=== PATIENT | male | born 1985 | race Caucasian/White ===

== ENCOUNTER 2017-05-07 06:27 | Emergency (ER) | payer OTHER ==
--- NOTE | 2017-05-07 07:08 | ER NURSING DOCUMENTATION ---
Nurse's Notes [facility] Name:Prudence Logan Age:31 yrs Sex:Male :1985 Arrival Date:05/07/2017 Time:06:27 Bed4 Private MD:PhysicianDelia Diagnosis:Medication Refill;Anxiety Reaction Presentation: 05/07 06:37 Presenting complaint: Patient states: pt states he hasnt slept last night and feels bw2 like there is something in his chest. pt states he has very minimal pain. Transition of care: patient was not received from another setting of care. 06:37 Method Of Arrival: Walk In bw2 06:37 Acuity: DOMINIQUE 3 bw2 07:06 AIR CAT ACTIVATION no other not medically needed. Asprin Given n/a. bw2 Triage Assessment: 06:39 General: Appears in no apparent distress, Behavior is anxious. Pain: Complains of pain bw2 in mid chest. Historical: - Allergies: No known drug Allergies; - Tetanus: < 10 years. - Ebola Screening: : Patient negative for fever greater than or equal to 101.5 degrees Fahrenheit, and additional compatible Ebola Virus Disease symptoms. Patient denies exposure to infectious person. Patient denies travel to an Ebola-affected area in the 21 days before illness onset. No symptoms or risks identified at this time. . - Immunization history: Flu Vaccine unknown. - Social history: Smoking status: Patient states was never smoker of tobacco. Screenin:55 Infectious Disease Risk None. Abuse screen: Denies threats or abuse. Nutritional bw2 screening: No deficits noted. Assessment: 06:55 See Triage Assessment done by same RN. Pain: Pain does not radiate. Pain began bw2 gradually, 1 day ago. Cardiovascular: Reports None Rhythm is regular. Vital Signs: 06:39 BP 157 / 91; Pulse 97; Resp 18 S; Temp 98(O); Pulse Ox 97% ; Weight 68.04 kg; Pain 2/10;bw2 ED Course: 06:29 Patient arrived in ED. em2 06:29 Physician, Delia is Private Physician. em2 06:37 Olesya Coronado is Primary Nurse. bw2 06:38 Triage completed. bw2 06:43 EKG done. (by ED staff). em1 06:50 Jose Maxwell MD is Attending Physician. jm 06:55 Valuables Remains with patient. Pulse Ox - RN Monitoring Only NIBP On - RN Monitoring bw2 Only. 07:40 EKG attached lp Administered Medications: No medications were administered Outcome: 07:02 Discharge ordered by . rasta 07:07 Discharged to home ambulatory. bw2 07:07 Condition: good 07:07 Discharge Assessment: Patient awake, alert and oriented x 3. No cognitive and/or functional deficits noted. Patient verbalized understanding of disposition instructions. 07:07 Discharge instructions given to patient, Instructed on discharge instructions, follow up and referral plans. Demonstrated understanding of medications, Prescriptions given X 2. 07:07 Patient left the ED. bw2 Signatures: Christina Krishnamurthy RN RN Jose Isaac MD MD jm [employer], [employer] em1 Tyrel-reg, Lucie-reg em2 Olesya Coronado bw2
--- NOTE | 2017-05-07 07:08 | ER PHYSICIAN DOCUMENTATION ---
Physician Documentation [facility] Name:Prudence Logan Age:31 yrs Sex:Male :1985 Arrival Date:05/07/2017 Time:06:27 Bed4 Private MD:Physician, No ED Jose Guerrero Disposition: 05/07/17 07:02 Discharged to Home/Self Care. Impression: Medication Refill, Anxiety Reaction. - Condition is Good. - Discharge Instructions: Anxiety - ANXIETY REACTION. - Prescriptions for alprazolam 0.5 mg Oral tablet - take 1 tablet by ORAL route 3 times per day; 40 tablet. sertraline 50 mg Oral tablet - take 1 tablet by ORAL route once daily; 30 tablet. - Medical Reconciliation form form. - Follow up: Private Physician; When: As needed; Reason: Continuance of care. - Problem is new. - Symptoms have improved. HPI: 05/07 07:46 This 31 yrs old Unknown Male presents to ER via Walk In with complaints of Chest jm Tightness. 07:46 The patient presents to the emergency department requesting refill(s) for: Xanax, jm Zoloft. The patient chronically suffers from anxiety. The patient has not experienced similar symptoms in the past. Pt here from [place] of town and forgot his xanax and zoloft and feels very anxious. He mentioned to triage that he has chest tightness, but he never mentioned this to me, just that he would like his medications. . Historical: - Allergies: No known drug Allergies; - Tetanus: < 10 years. - Ebola Screening: : Patient negative for fever greater than or equal to 101.5 degrees Fahrenheit, and additional compatible Ebola Virus Disease symptoms. Patient denies exposure to infectious person. Patient denies travel to an Ebola-affected area in the 21 days before illness onset. No symptoms or risks identified at this time. . - Immunization history: Flu Vaccine unknown. - Social history: Smoking status: Patient states was never smoker of tobacco. ROS: 07:46 Constitutional: Negative for fatigue, fever. jm 07:46 Cardiovascular: Negative for chest pain. 07:46 Respiratory: Negative for shortness of breath. 07:46 Psych: Positive for anxiety, insomnia. 07:46 All other systems are negative. Exam: 07:46 Constitutional: The patient appears alert, awake, anxious. jm 07:46 Cardiovascular: Rate: normal, Rhythm: regular. 07:46 Respiratory: Respirations: normal, Breath sounds: are normal. 07:46 Musculoskeletal/extremity: DVT Exam: No signs of deep vein thrombosis. Calves: are non-tender. 07:46 Psych: Behavior/mood is pleasant, cooperative, anxious, Affect is calm. Vital Signs: 06:39 BP 157 / 91; Pulse 97; Resp 18 S; Temp 98(O); Pulse Ox 97% ; Weight 68.04 kg; Pain 2/10;bw2 MDM: 06:50 Patient medically screened. 07:40 EKG attached lp 07:51 Data reviewed: vital signs, nurses notes, EKG, and as a result, I will discharge patient. Test interpretation: by ED physician or midlevel provider: ECG. Counseling: I had a detailed discussion with the patient and/or guardian regarding: the historical points, exam findings, and any diagnostic results supporting the discharge/admit diagnosis, the need for outpatient follow up, with the patient's primary care provider. ECG:. ED course: MEds refilled. Pt most likely w/d from SRI and benzos. . 05/07 06:54 Order name: EKG - 12 Lead; Complete Time: 06:55 bw2 EC:51 Rhythm is regular. QRS Roark is Normal. MD interval is normal. QRS interval is normal. QT interval is normal. No Q waves. T waves are Normal. No ST changes noted. Dispensed Medications: No medications were administered Signatures: Christina Krishnamurthy RN RN lp Meyer, John, MD MD jm Wisely [facility] bw2
== END 2017-05-07 07:08 | disposition home or self-care (01) ==
LOC: ER 06:27
DX: R41.9 Unspecified symptoms and signs involving cognitive functions and awareness (principal); Z76.0 Encounter for issue of repeat prescription; R07.89 Other chest pain; G47.00 Insomnia, unspecified; Z79.899 Other long term (current) drug therapy
CPT/HCPCS: 93005; 99283